=== PATIENT | female | born 1960 | race Caucasian/White ===

== ENCOUNTER → 2017-12-24 | Outpatient (CLI) | payer OTHER | END | disposition home or self-care (01) | LOC: OIH 14:30 | PROVIDERS: ATTEND Internal Medicine | DX: Z13.6 Encounter for screening for cardiovascular disorders (principal) | CPT/HCPCS: 75571 ==

== ENCOUNTER 2023-11-12 14:52 | Emergency (ER) | payer BC, OTHER ==
[~2023-11-12] VITALS: Ht 172.7 cm; Wt 86.2 kg
[2023-11-12 14:57] VITALS: BP 147/88; PULSE 98; RESP 18
[2023-11-12 15:26] LABS: APPEARANCE,URINE CLOUDY (CLEAR); BILIRUBIN,URINE NEGATIVE (NEGATIVE); COLOR,URINE LIGHT-YELLOW (YELLOW); GLUCOSE, URINE (UA) NEGATIVE (NEGATIVE); KETONES,URINE NEGATIVE (NEGATIVE); LEUKOCYTE ESTERASE ,URINE 500 Leu/uL (NEGATIVE); NITRATE,URINE NEGATIVE (NEGATIVE); OCCULT BLOOD,URINE SMALL (NEGATIVE); PH,URINE 6.5 (5.0-8.0); PROTEIN,URINE 30 mg/dL (NEGATIVE); UROBILINOGEN,URINE 0.2 mg/dL (0.2-1.0)
[2023-11-12 15:27] LABS: ADD UA MICROSCOPIC YES
[2023-11-12 15:35] LABS: INFLUENZA TYPE A Negative For Type A (NEGATIVE)
[2023-11-12 15:36] LABS: COVID19 (SARS ANTIGEN RAPID) PRESUMPTIVE NEGATIVE (NEGATIVE)
[2023-11-12 15:38] LABS: INFLUENZA TYPE B Positive For Type B (NEGATIVE)
[2023-11-12 15:41] LABS: MUCUS,URINE RARE LPF (None Seen); SQUAMOUS EPITHELIAL CELL,UR FEW /HPF (0-2); TRANSITIONAL EPI CELLS,URINE RARE /HPF (None Seen); WBC,URINE TNTC /HPF (0-1); YEAST,URINE BUDDING RARE /HPF (None Seen)
[2023-11-12] MEDS ORDERED: PHEN-847 PO (15:56)
[2023-11-12] MEDS ORDERED: OSEL75 PO (15:56)
[2023-11-12] MEDS ORDERED: BENZ-39 PO (15:56)
[2023-11-12 16:12] VITALS: TEMP 101
[2023-11-12] MEDS: IBUPROFEN 600 MG TABLET PO ONE (16:12)
== END 2023-11-12 16:20 | disposition home or self-care (01) ==
LOC: EDH 14:52
DX: J10.1 Influenza due to other identified influenza virus with other respiratory manifestations (principal); N30.00 Acute cystitis without hematuria; Z20.822 Contact with and (suspected) exposure to COVID-19; Z79.899 Other long term (current) drug therapy; Z87.442 Personal history of urinary calculi; Z90.710 Acquired absence of both cervix and uterus; Z98.890 Other specified postprocedural states
CPT/HCPCS: 81001; 87086; 87426; 87804